=== PATIENT | female | born 1990 | race Asian ===

== ENCOUNTER 2017-04-26 05:41 | Inpatient (IN) | payer MEDICAID ==
[~2017-04-26] VITALS: Ht 157.5 cm; Wt 60.8 kg
[2017-04-26] VITALS (8 sets, daily range): BP systolic 72–133; BP diastolic 31–76
[2017-04-26] MEDS ORDERED: CARBOPROST TROMETHAMINE 250 MCG/ML AMPUL IM PRN (06:00)
[2017-04-26] MEDS ORDERED: METHYLERGONOVINE MALEATE 0.2 MG/ML IM PRN (06:00)
[2017-04-26] MEDS ORDERED: NALOXONE HCL 0.4 MG/ML 1ML VIAL IM PRN (06:00)
[2017-04-26] MEDS ORDERED: DEXT 5%/LR + PITOCIN 20UNITS/L 1,000 ML IV SCH ×2 (06:00→08:32)
[2017-04-26] MEDS ORDERED: MISOPROSTOL 100MCG TABLET VG SCH (06:00)
[2017-04-26 06:25] LABS: BASOPHILS % 0.3 % (0.0-2.0); EOSINOPHILS % 1.7 % (0.0-5.0); HEMOGLOBIN. 14.2 g/dL (12.0-16.0); LYMPHOCYTES % 22.1 % (20.0-50.0); MEAN CORPUSCULAR VOLUME 92.2 fL (81.0-99.0); MONOCYTES % 6.1 % (2.0-8.0); NEUTROPHILS % 69.8 % (40.0-76.0); PLATELET 157 x1000/uL (130-400); RED BLOOD CELL COUNT 4.44 mill/uL (4.2-5.4); RED CELL DISTRIBUTION WIDTH 12.6 % (11.6-14.6)
[2017-04-26 06:28] LABS: CLARITY URINE CLEAR (CLEAR); COLOR URINE YELLOW (YELLOW); KETONES URINE TRACE (NEGATIVE); LEUKOCYTE ESTERASE URINE NEGATIVE (NEGATIVE); NITRITE URINE NEGATIVE (NEGATIVE); OCCULT BLOOD URINE NEGATIVE (NEGATIVE); PH URINE 6.5 (4.5-8.0); PROTEIN URINE NEGATIVE (NEGATIVE); SPECIFIC GRAVITY URINE 1.012 (1.005-1.030); UROBILINOGEN URINE 0.2 E.U./dL (0.2-1.0)
[2017-04-26 06:32] LABS: PARTIAL THROMBOPLASTIN TIME 27.3 sec (23.4-31.0)
[2017-04-26 06:59] LABS: *AMPHETAMINES SCREEN URINE NEGATIVE (NEGATIVE); *BARBITURATES SCREEN URINE NEGATIVE (NEGATIVE); *BENZODIAZEPINES SCREEN URINE NEGATIVE (NEGATIVE); *COCAINE SCREEN URINE NEGATIVE (NEGATIVE); CANNABINOID URINE SCREEN NEGATIVE (NEGATIVE); METHADONE URINE SCREEN NEGATIVE (NEGATIVE); OPIATES URINE SCREEN NEGATIVE (NEGATIVE); PHENCYCLIDINE URINE SCREEN NEGATIVE (NEGATIVE)
[2017-04-26] MEDS ORDERED: MORPHINE SULFATE/PF 1MG/ML 10ML AMP ONE (07:05)
[2017-04-26] MEDS ORDERED: FENTANYL CITRATE/PF 50MCG/ML 2ML VIAL ONE (07:05)
[2017-04-26] MEDS: LACTATED RINGERS 1,000 ML IV SCH ×2 (07:22→07:23)
[2017-04-26] MEDS ORDERED: NALOXONE HCL 0.4 MG/ML 1ML VIAL IV PRN (07:30)
[2017-04-26] MEDS ORDERED: DIPHENHYDRAMINE 50MG/ML VIAL IV PRN (07:30)
[2017-04-26] MEDS ORDERED: BUTORPHANOL TARTRATE 2 MG/ML VIAL IV PRN (07:30)
[2017-04-26] MEDS ORDERED: ONDANSETRON HCL 4MG/2ML INJ ONE (07:45)
[2017-04-26] MEDS ORDERED: CEFAZOLIN SODIUM 1000MG/VIAL ONE (07:45)
[2017-04-26] MEDS ORDERED: PHENYLEPHRINE HCL 10 MG/ML 1ML (IV VIAL) IV ONE (07:45)
[2017-04-26] MEDS ORDERED: EPHEDRINE SULFATE 50MG/ML VIAL ONE (07:46)
[2017-04-26] MEDS ORDERED: OXYTOCIN 10 UNITS/ML 1ML ONE (07:46)
[2017-04-26] MEDS ORDERED: GLYCOPYRROLATE 0.2 MG/ML 2ML VIAL ONE (07:46)
[2017-04-26] MEDS ORDERED: DIPHENHYDRAMINE 50MG/ML VIAL ONE (08:12)
[2017-04-26] MEDS ORDERED: HYDROMORPHONE HCL/PF 2MG/ML CPJ IV PRN (08:45)
[2017-04-26] MEDS ORDERED: HYDROCODONE/ACETAMINOPHEN 5/325MG TABLET PO PRN (08:45)
[2017-04-26] MEDS ORDERED: ONDANSETRON HCL 4MG/2ML INJ IV PRN (08:45)
[2017-04-26 11:53] LABS: HEPATITIS B SURFACE ANTIGEN REACTIVE PEND CONFIR
[2017-04-26] MEDS ORDERED: KETOROLAC 30MG/ML VIAL IV PRN (12:00)
[2017-04-26] MEDS: CEFAZOLIN 1000MG PREMIX 50 ML IV SCH ×2 (14:00→21:29)
[2017-04-26] MEDS ORDERED: CEFAZOLIN SODIUM 1000MG/VIAL IV SCH (14:00)
[2017-04-26] MEDS: SIMETHICONE 80MG TABLET CHEW PO SCH ×2 (17:00→21:30)
[2017-04-26] MEDS: DOCUSATE SODIUM 100MG CAPSULE PO SCH (21:29)
[2017-04-26] MEDS ORDERED: LACTATED RINGERS 1,000 ML IV SCH (23:45)
[2017-04-27] VITALS: BP 85/48
[2017-04-27] MEDS ORDERED: LACTATED RINGERS 1,000 ML IV SCH
[2017-04-27] MEDS: CEFAZOLIN 1000MG PREMIX 50 ML IV SCH (04:55)
[2017-04-27 05:00] VITALS: BP 90/54
[2017-04-27 05:51] LABS: HEMOGLOBIN 13.3 g/dL (12.0-16.0)
[2017-04-27 08:51] VITALS: BP 91/49
[2017-04-27] MEDS: SIMETHICONE 80MG TABLET CHEW PO SCH ×4 (09:00→22:16)
[2017-04-27] MEDS: IBUPROFEN 400MG TABLET PO PRN ×2 (15:55→22:17)
[2017-04-27 19:25] VITALS: BP 90/49
[2017-04-27] MEDS: DOCUSATE SODIUM 100MG CAPSULE PO SCH (22:15)
[2017-04-27 23:55] VITALS: BP 94/49
[2017-04-28] MEDS ORDERED: INFLUENZA VIRUS VACCINE(AFLURIA) 0.5ML SYR IM ONE
[2017-04-28] MEDS ORDERED: TETANUS, DIPHTHERIA, PERTUSSIS VAC/PF 0.5ML (>7YR OLD) IM ONE (02:00)
[2017-04-28 04:45] VITALS: BP 99/62
[2017-04-28 08:10] VITALS: BP 95/62
[2017-04-28] MEDS: SIMETHICONE 80MG TABLET CHEW PO SCH ×2 (08:19→14:08)
[2017-04-28] MEDS: HYDROCODONE/ACETAMINOPHEN 5/325MG TABLET PO PRN ×2 (08:24→14:09)
[2017-04-28] MEDS: IBUPROFEN 400MG TABLET PO PRN ×2 (08:24→14:09)
[2017-04-28 12:00] VITALS: BP 96/63
== END 2017-04-28 14:00 | disposition home or self-care (01) | DRG 540 ==
LOC: OBSVTOIN 05:41 → L&D 05:41 → 7EST PP/OB 10:55
PROVIDERS: ADMIT Obstetrics & Gynecology Obstetrics; ATTEND Obstetrics & Gynecology Obstetrics
PROC: 10D00Z1 Extraction of Products of Conception, Low, Open Approach (ICD-10-PCS; principal; 2017-04-26)
DX: O34.211 Maternal care for low transverse scar from previous cesarean delivery (principal); O98.42 Viral hepatitis complicating childbirth; B18.1 Chronic viral hepatitis B without delta-agent; O69.81X0 Labor and delivery complicated by cord around neck, without compression, not applicable or unspecified; Z3A.39 39 weeks gestation of pregnancy; Z37.0 Single live birth
CPT/HCPCS: 36415; 80305; 85014; 85018; 86592; 86703; 86762; 86850; 86900; 86920; 87340; 88307; 90686; 90715; 99281; G0378; J0690; J1200; J1885; J2274; J2370; J2405; J2590; J3010; J3490; J7120